=== PATIENT | male | born 1990 | race Caucasian/White ===

== ENCOUNTER 2023-08-08 13:20 | Emergency (ER) | payer MEDICAID ==
[~2023-08-08] VITALS: Ht 182.9 cm; Wt 76.1 kg
[2023-08-08 13:25] VITALS: BP 114/79; PULSE 84; TEMP 98.2; O2SAT 99
[2023-08-08 15:43] VITALS: RESP 18
== END 2023-08-08 15:48 | disposition home or self-care (01) ==
LOC: ER 13:21
DX: F11.90 Opioid use, unspecified, uncomplicated (principal)
CPT/HCPCS: 99281